=== PATIENT | male | born 1975 | race Caucasian/White ===

== ENCOUNTER 2016-07-12 10:12 | Day surgery (SDC) | payer OTHER ==
[2016-07-11 12:23] VITALS: BMI 24.4
--- NOTE | 2016-07-12 09:46 | HP ---
History & Physical Update - History History: No Change - Physical Physical: No Change - Assessment Assessment: No Change - Plan Plan: No Change
[~2016-07-12 10:12] MED LIST: BUPIVACAINE HCL/PF 0.5% (5MG/ML) 10 ML VIAL IJ ONE
[2016-07-12] MEDS ORDERED: MIDAZOLAM HCL 2 MG/2 ML SINGLE DOSE VIAL ONE (13:11)
[2016-07-12] MEDS ORDERED: LIDOCAINE HCL 2% (20ML MULTI-DOSE VIAL) NR ONE (13:22)
[2016-07-12] MEDS ORDERED: PROPOFOL 20 ML ONE ×2 (13:22→14:18)
[2016-07-12] MEDS ORDERED: ROCURONIUM BROMIDE 50 MG/5 ML VIAL ONE (13:24)
[2016-07-12] MEDS ORDERED: ceFAZolin SODIUM 1 GM VIAL IVPB ONE (13:27)
[2016-07-12] MEDS ORDERED: ceFAZolin SODIUM 1 GM VIAL ONE (13:43)
[2016-07-12] MEDS ORDERED: KETOROLAC TROMETHAMINE 30 MG/1 ML VIAL ONE (13:45)
[2016-07-12] MEDS ORDERED: DEXAMETHASONE SOD PHOSPHATE 4 MG/1 ML VIAL ONE (13:45)
[2016-07-12] MEDS ORDERED: HYDROmorphone HCL/PF 1 MG/ML VIAL (FOR PYXIS CHARGING ONLY) ONE (14:02)
[2016-07-12] MEDS ORDERED: GLYCOPYRROLATE 0.2 MG/1 ML VIAL ONE (14:04)
[2016-07-12] MEDS ORDERED: NEOSTIGMINE METHYLSULFATE 0.5 MG/ML - 10 ML MDV ONE (14:04)
[2016-07-12] MEDS ORDERED: BUPIVACAINE HCL/PF 0.5% (5MG/ML) 10 ML VIAL ONE (14:09)
[2016-07-12] MEDS ORDERED: BUPIVACAINE HCL/PF 0.5% (5MG/ML) 10 ML VIAL IJ ONE (14:49)
[2016-07-12] MEDS ORDERED: PROMETHAZINE HCL 25 MG/1 ML VIAL IVPUSH PRN (15:26)
[2016-07-12] MEDS ORDERED: ONDANSETRON 4 MG/2 ML VIAL IVPUSH PRN (15:26)
[2016-07-12] MEDS ORDERED: oxyCODONE HCL 5 MG TABLET PO PRN (15:26)
--- NOTE | 2016-07-12 15:27 | OP ---
Operative Note - Note: Operative Date: 07/12/16 Pre-Operative Diagnosis: Incarcerated left inguinal hernia. Operation: Repair of incarcerated left inguinal hernia with plug and mesh. Findings: Large indirect sac, extending down into the scrotum. Post-Operative Diagnosis: Same as Pre-op Surgeon: Mauro Collazo Anesthesia: General Specimens Removed: Hernial sac. Estimated Blood Loss (mls): 10 Operative Report Dictated: Yes
[2016-07-12] MEDS ORDERED: LACTATED RINGERS SOLUTION 1,000 ML IV SCH (15:30)
[2016-07-12 15:46] VITALS: TEMP 98.3
[2016-07-12] MEDS ORDERED: oxyCODONE HCL 5 MG TABLET PO ONE (16:50)
[2016-07-12] MEDS ORDERED: oxyCODONE HCL 5 MG TABLET ONE (16:52)
[2016-07-12 17:40] VITALS: BP 126/70; PULSE 68
--- NOTE | 2016-07-13 06:24 | OP ---
DATE OF OPERATION: 07/12/2016 PREOPERATIVE DIAGNOSIS: Incarcerated left inguinal scrotal hernia. POSTOPERATIVE DIAGNOSIS: Incarcerated left inguinal scrotal hernia. OPERATIVE PROCEDURE: Repair of incarcerated left inguinal hernia with plug and mesh. SURGEON: Roberto Collazo MD ONLINE ADVERTISING DIRECTOR: Medical student ANESTHESIA: General anesthesia. OPERATIVE DESCRIPTION: This 40-year-old man had enlarged inguinal scrotal swelling in the left groin. The patient was brought in for repair of incarcerated left inguinal hernia. Consent was obtained. Risks, benefits, and complications were discussed with the patient. Site was marked. The patient was given general anesthesia. The left groin was painted and draped. A time-out was called. He was given a gram of Ancef. An incision was made in the left groin along the skin crease. It was deepened inside the skin, subcutaneous tissue, and the Brian fascia. The external oblique aponeurosis was then incised along the direction of the fibers. The ilioinguinal nerve was protected throughout the procedure. The iliohypogastric nerve was identified and preserved throughout the procedure. The patient had a very wide cord. This was isolated around a 0.5-inch [place] drain. The cremaster muscle was then incised and enlarged. Strap was identified. This was from the rest of the cord structures. This was about 4 cm wide and extended all the way down to the scrotum. This was carefully from the rest of the structures. This was then suture ligated at the level of the internal ring with double 2-0 Vicryl sutures. The sac distal to the ligation was divided and sent to Pathology. Prior to this, the sac was examined. There was no bowel within the sac . The peritoneum circumferentially was then and returned into the abdominal cavity. A large plug was then inserted through the internal ring placed behind the abdominal wall. This was anchored with two 2-0 Prolene sutures going through the internal oblique transverse abdominis muscle, brought through the internal ring, then through the outer leaf of the the plug, and then was reinserted through the internal ring and brought out through the abdominal wall. Two such sutures were obtained, one above, and medial to the internal ring, and a 2nd above and lateral to the internal ring. A large mesh was then interposed between the posterior wall of the inguinal canal. This was placed over, and anchored at the level of the pubic tubercle with 2-0 Prolene sutures. The inferior leaf of the mesh was placed over the shelving edge of the inguinal ligament and anchored with a VersaTack tacking device. The superior leaf of the mesh was then incorporated to the suture,holding the plug behind the abdominal wall, brought through the mesh, and the knot was fastened. The lateral sutures was passed through both limbs of the mesh, as it came around the cord structures, and was placed over the internal ring muscle. This was brought through both layers of the mesh, and the knot was fastened. A few other tackers were placed to place the mesh over the internal oblique muscle. The repair was adequately performed. The wound was irrigated. Hemostasis was satisfactory. The external oblique aponeurosis was approximated with continuous 3-0 Vicryl sutures in a running fashion. The external ring was reformed. Then 0.5% Marcaine was injected, around the cord structures over the pubic tubercle and over the inguinal nerve and hypogastric nerves as well as over the skin and subcutaneous tissue. The Brian's fascia was approximated with buried interrupted 3-0 Vicryl sutures. The subcutaneous fat was approximated, with buried interrupted 3-0 Vicryl sutures, and the skin was approximated with continuous 4-0 Monocryl sutures, in a running subcuticular fashion. Sponge count and instrument count was correct. Estimated blood loss was between 5-10 mL. Dermabond was applied at the skin edges. The patient was moved to the recovery room in satisfactory and stable condition. Jules [id number] MTDD
--- NOTE | 2016-07-16 12:32 | PATH ---
Surgical Pathology Report Patient Name: YANNI AQUINO Med. Rec. #: [id number] /Age/Gender: 1975 (Age: 40) / M Account: [id number] Location: [facility] Taken: 07/12/2016 Received: 07/15/2016 Reported: 07/16/2016 Physicians: Roberto Collazo M.D. Specimen(s) Received HERNIA SAC Clinical History Left incarcerated inguinal hernia Final Diagnosis SOFT TISSUE, LEFT INGUINAL, EXCISION: HERNIA SAC. Electronically Signed Jered Pollard M.D. Gross Description Received in formalin labeled "hernia sac," is a 7.0 x 4.3 x 1.4 cm portion of britton-brown fibromembranous tissue, consistent with a hernia sac. No masses are identified. Regional Loss Prevention Manager sections are submitted in one cassette. /07/15/2016 [facility]07/15/2016
== END 2016-07-12 17:35 | disposition home or self-care (01) ==
LOC: JASU-SURG 10:12
PROVIDERS: ATTEND Specialist
PROC: 0YU60JZ Supplement Left Inguinal Region with Synthetic Substitute, Open Approach (ICD-10-PCS; principal; 2016-07-12 11:30)
DX: K40.30 Unilateral inguinal hernia, with obstruction, without gangrene, not specified as recurrent (principal)
CPT/HCPCS: 88302-TC; 94760